=== PATIENT | female | born 1990 | race African-American/Black ===

== ENCOUNTER 2017-10-14 19:07 | Observation (INO) | payer BC, SELFPAY ==
[~2017-10-14 19:07] MED LIST: ISOVUE-370 76%-LOCM 1 ML ONE
[2017-10-14 20:18] LABS: #Lymphocytes 0.8 thou/uL (1.20-3.40); #Monocytes 0.2 thou/uL (0.11-0.59); #Neutrophils 10.4 thou/uL (1.40-6.50); %Basophils 0.2 % (0.0-1.0); %Eosinophils 0.2 % (0.0-10.0); %Lymphocytes 6.9 % (21.0-51.0); %Monocytes 1.4 % (0.0-10.0); %Neutrophils 91.4 % (42.0-75.0); Hemoglobin 12.4 g/dL (12.0-16.0); Mean Corpuscular HGB CONC 32.6 g/dL (32.0-36.0); Mean Corpuscular Hemoglobin 29.3 pg (27.0-31.0); Mean Platelet Volume 6.5 fL (7.4-10.4); Platelet Count 348 thou/uL (130-400); RBC Distribution Width 13.2 % (11.5-14.5); Red Blood Cell (RBC) Count 4.23 mill/uL (4.20-5.40); White Blood Cell (WBC) Count 11.3 thou/uL (4.8-10.8)
[2017-10-14 20:29] LABS: MONO NEGATIVE CONTROL ZONE White (Negative) (White); MONO POSITIVE CONTROL Pink Line (Positive) (PINK/RED); Mononucleosis NEGATIVE (NEGATIVE)
[2017-10-14 20:39] LABS: Anion Gap 13 mmol/L (10-20); BUN (Urea Nitrogen) 7 mg/dL (7.0-18.7); Calc. Creatinine Clearance 0 mL/min (70-130); Carbon Dioxide 24 mmol/L (22-29); Chloride 102 mmol/L (98-107); Estimated GFR-MDRD Greater than 90; Glucose 93 mg/dL (70-105); Potassium 4.4 mmol/L (3.5-5.1); Sodium 135 mmol/L (136-145)
--- NOTE | 2017-10-14 22:59 | CT ---
POSTCONTRAST SOFT TISSUE NECK CT: 10/14/17 HISTORY: Difficulty swallowing. Left jaw pain. Evaluate for peritonsillar abscess. COMPARISON: None. TECHNIQUE: Postcontrast soft tissue neck CT is performed in the axial plane. Reformatted images are submitted fo r interpretation. FINDINGS: There is a mucous retention cyst in the left maxillary sinus. Adequate aeration of the visualized sin uses and mastoid air cells. There is fullness of the nasopharynx as well as the left and right palatine tonsils. There is a perip herally enhancing centrally hypodense lesion involving the left subtonsillar soft tissues/peritonsill ar soft tissues measuring 2.1 x 2.3 cm. Peritonsillar abscess is favored. There is edema in the left parapharyngeal space extending inferiorly. A small amount of edema in the posterior left retropharyng eal space is also noted. There is mild narrowing of the of the airway. Mild lymphoid hyperplasia at t he tongue base. No obvious masses in the anterior oral cavity. Midline fatty raphae of the tongue is preserved. Epiglottis has a normal caliber. Pre-epiglottic fat is preserved. The supraglottic, glottic and subgl ottic larynx is unremarkable. Symmetric attenuation of the psoas muscles. Symmetric attenuation of the parotid and submandibular glands. Sublingual glands are unremarkable. Th ere are scattered mildly enlarged bilateral soft tissue neck lymph nodes. Enlarged help desk representative lef t level II lymph node measures 1.1 x 1.6 cm. Enlarged right level II lymph node measures 1.4 x 0.8 cm . There is no prevertebral soft tissue swelling. Cervical spine vertebral height is maintained. There i s no fracture. Straightening of the normal cervical lordosis is noted. Upper mediastinum and lung api aline are unremarkable. There is periodontal disease involving the posterior left mandible with periapical lucency involving the posterior most mandibular tooth. There is destruction of the medial aspect of the mandible. The a forementioned abscess may have originated from an odontogenic origin. IMPRESSION: 1. Left peritonsillar abscess, etiology is uncertain. There is evidence of periodontal disease i nvolving the posterior most left mandibular molar tooth. This infected fluid collection may have an o dontogenic origin. Clinical correlation is essential. 2. There is edema involving the left parapharyngeal space extending inferior. 3. Large bilateral soft tissue neck lymph nodes which are presumed to be reactive. POS: PPP
[2017-10-14] MEDS ORDERED: HYDROcodone/Acetaminophen 10/325 mg Tablet PO PRN (23:15)
[2017-10-14] MEDS ORDERED: Senokot 8.6 MG TAB PO PRN (23:15)
[2017-10-14] MEDS ORDERED: Ondansetron HCl/PF 4 MG/2 ML Vial IVP PRN (23:15)
[2017-10-14 23:22] VITALS: BMI 20.3
[2017-10-14] MEDS: Sodium Chloride 0.9% 1,000 ML IV SCH (23:30)
[2017-10-14] MEDS: Piperacillin/Tazobactam 4.5 GM in Sodium Chloride 0.9% 100 ML IVPB SCH (23:51)
--- NOTE | 2017-10-15 00:01 | HP ---
DATE OF ADMISSION: 10/14/2017 CHIEF COMPLAINT: Left jaw pain. HISTORY OF PRESENT ILLNESS: This is a 27-year-old -[place] female who presented with a sudde n onset of left jaw pain yesterday, which was progressively getting worse and she is unable to swallo w any fluids nor any of her secretions. When patient presented to the ER, she is unable to open the mouth and there is a high suspicion for peritonsillar abscess, which did prove right and she had a CT of the soft tissue neck, which showed no evidence of left peritonsillar abscess and edema at the pos terior pharyngeal space inferiorly and also showed molar tooth with possible source of the infection of the peritonsillar abscess. ENT was consulted from the ER, who agreed to see the patient and go fr om there. Patient denied having any chest pain, no nausea, no vomiting, no diarrhea, no constipation . She denied having any tooth pains in the past. She denied having any previous hospitalizations. PAST MEDICAL HISTORY: None. PAST SURGICAL HISTORY: Had tubes tied both bilaterally. SOCIAL HISTORY: She is a nonsmoker. Smokes half pack a day. She does drink alcohol occasionally ev ally other week. No history of illicit drug use. FAMILY HISTORY: No significant family history of coronary artery disease or any cancers in the famil y. HOME MEDICATIONS: None. ALLERGIES: No known drug allergies. REVIEW OF SYSTEMS: All 12 systems are reviewed with the patient thoroughly and found to be negative at this time. Systems reviewed, HEENT, CVS, CONCRETE POURER, respiratory, gastrointestinal, genitourinary, muscu loskeletal. The following complete review of systems was negative, unless otherwise mentioned in the HPI or below: Constitutional: Weight loss or gain, sense of well-being, ability to conduct usual a ctivities, exercise tolerance. Skin/Breast: Rash, itching, changes in hair growth or loss, nail changes, breast lumps, tenderness, swelling, nipple discharge. Eyes: Vision, double vision, tearing, blind spots, pain. ENT/Mouth: H eadaches (location, time of onset, duration, precipitating factors), vertigo, lightheadedness, injury . Vision, double vision, tearing, blind spots, pain, nose bleeding, colds, obstruction, discharge, de ntal difficulties, gingival bleeding, dentures, neck stiffness, pain, tenderness, masses in thyroid o r other areas. Cardiovascular: Precordial pain, substernal distress, palpitations, syncope, dyspnea on exertion, orthopnea, nocturnal paroxysmal dyspnea, edema, cyanosis, hypertension, heart murmurs, varicosities, phlebitis, claudication. Respiratory: Pain, shortness of breath, wheezing, stridor, c ough, hemoptysis, fever or night sweats. Gastrointestinal: Poor appetite, dysphagia, indigestion, a bdominal pain, heartburn, eructation, nausea, vomiting, hematemesis, jaundice, constipation, or diarr hea, abnormal stools (antonieta-colored, tarry, bloody, greasy, foul smelling), flatulence, hemorrhoids, r ecent changes in bowel habits. Genitourinary: Urgency, frequency, dysuria, nocturia, hematuria, evelio yuria, oliguria, unusual (or change in) color of urine, stones, hesitancy, change in size of stream, dribbling, acute retention or incontinence, libido, potency. Musculoskeletal: Pain, swelling, redne ss or heat of muscles or joints, limitation, of motion, muscular weakness, atrophy, cramps. Neurolog ic/Psychiatric: Convulsions, paralyzes, tremor, incoordination, paresthesias, difficulties with manuel ry of speech, sensory or motor disturbances, or muscular coordination (ataxia, tremor), emotional pro blems, anxiety, depression, previous psychiatric care, unusual perceptions, hallucinations. Allergy/ Immunologic: Skin rash, anemia, bleeding tendency, polydipsia, polyuria, intolerance to heat or cold . PHYSICAL EXAMINATION: VITAL SIGNS: Blood pressures are 101/60, heart rate is 88, respiration rate is 18, saturation 98%. GENERAL: The patient is moderately built, moderately nourished. She does not appear to be in acute distress at this time. She is alert, oriented x3. HEENT: Atraumatic, normocephalic. PERRLA. Extraocular movements were intact. Oral mucosa is pink and moist. CARDIOVASCULAR: S1, S2 normal. No murmurs, rubs, or gallops. LUNGS: Bilateral air entry was equal. No wheezing, no crackles. ABDOMEN: Soft and nontender. No guarding or rebound tenderness. Bowel sounds normal. MUSCULOSKELETAL: No calf tenderness. No pedal edema. EXTREMITIES: No joint tenderness, no joint swelling. SKIN: No cyanosis, no erythema, no rash, no pallor. NEUROLOGIC: Cranial examination II-XII intact. No focal deficits were noted. PSYCHIATRIC: No signs of suicidal ideation, no signs of chaz. NECK: No thyromegaly. Lymph nodes were noted at the left mandibular area and posterior cervical are a. LABORATORY DATA: 1. Sodium is 135, potassium 4.4, chloride is 102, bicarbonate is 24, BUN 7, creatinine 0.9. 2. WBC 11.3, hemoglobin is 12.4, hematocrit is 38.1, platelets of 348. 3. [place] screen was negative. 4. CT of the soft tissue neck was reviewed by me and also discussed the report with ER physician. P liya did have evidence of left peritonsillar abscess and also left lower molar tooth with signs of infection. ASSESSMENT: 1. Left peritonsillar abscess. 2. Left mandibular molar tooth infection. 3. Moderate dehydration. PLAN: 1. Plan is to consult ENT with ER physician already spoke to and they planned to see the patient in the morning for a possible I&D and removal of the abscess. Plan is to keep the patient n.p.o. at thi s time and start the patient on IV antibiotics with Zosyn 4.4 per grams daily q.6 hours. We will edin sely monitor for any worsening systemic infection. 2. Patient has possible molar tooth infection and may need to have Oral Surgeon to see the patient e ither in the hospital or as urgent referral to outpatient dental surgery. 3. Patient has moderate dehydration, we will start the patient on normal saline at 100 mL an hour. We will closely monitor the patient overnight. 4. Deep venous thrombosis prophylaxis, SCDs as the patient is scheduled for surgery in the morning. I have spent 65 minutes with this patient.
[2017-10-15 05:08] LABS: #Lymphocytes 0.8 thou/uL (1.20-3.40); #Monocytes 0.1 thou/uL (0.11-0.59); #Neutrophils 8.3 thou/uL (1.40-6.50); %Basophils 0.1 % (0.0-1.0); %Lymphocytes 8.6 % (21.0-51.0); %Monocytes 1.5 % (0.0-10.0); %Neutrophils 89.7 % (42.0-75.0); Hemoglobin 11.5 g/dL (12.0-16.0); Mean Corpuscular HGB CONC 32.6 g/dL (32.0-36.0); Mean Corpuscular Hemoglobin 29.4 pg (27.0-31.0); Mean Corpuscular Volume 90.1 fl (81.0-99.0); Mean Platelet Volume 6.5 fL (7.4-10.4); Platelet Count 308 thou/uL (130-400); RBC Distribution Width 13.1 % (11.5-14.5); Red Blood Cell (RBC) Count 3.91 mill/uL (4.20-5.40); White Blood Cell (WBC) Count 9.3 thou/uL (4.8-10.8)
[2017-10-15] MEDS: Piperacillin/Tazobactam 4.5 GM in Sodium Chloride 0.9% 100 ML IVPB SCH ×2 (05:31→12:24)
[2017-10-15 05:34] LABS: Anion Gap 11 mmol/L (10-20); BUN (Urea Nitrogen) 9 mg/dL (7.0-18.7); Calc. Creatinine Clearance 103 mL/min (70-130); Calcium 9.5 mg/dL (7.8-10.44); Carbon Dioxide 23 mmol/L (22-29); Chloride 104 mmol/L (98-107); Estimated GFR-MDRD Greater than 90; Glucose 128 mg/dL (70-105); Potassium 4.3 mmol/L (3.5-5.1); Sodium 134 mmol/L (136-145)
[2017-10-15] MEDS ORDERED: Nicotine 14 MG PATCH TD SCH (09:00)
[2017-10-15] MEDS: Sodium Chloride 0.9% 1,000 ML IV SCH (12:25)
[2017-10-15 12:28] VITALS: BP 101/60; TEMP 97.8
--- NOTE | 2017-10-15 23:29 | DIS ---
DATE OF ADMISSION: 10/14/2017 DATE OF DISCHARGE: 10/15/2017 DISCHARGE DIAGNOSES: 1. Left peritonsillar abscess. 2. Status post incision and drainage of left peritonsillar abscess on 10/15/2017. 3. Tobacco abuse. CONSULTATIONS: Dr. Samm Hancock with ENT Service. PERTINENT LAB AND X-RAY FINDINGS: Basic metabolic profile within normal limits. CBC showed a white blood cell count ranged between 9.3-11.3. [place] screen negative on 10/14/2017. Group A streptococcal screen on 10/14/2017, negative. CT of the soft tissues of the neck dated 10/14/2017 showed left per itonsillar abscess. Evidence of periodontal disease involving the posterior left mandibular molar to oth. Associated lymphadenopathy noted. HOSPITAL COURSE: The patient was observed on the medical floor after initially presenting with left jaw pain and dysphagia with CT imaging of the neck, confirming a left peritonsillar abscess. The pat ient was evaluated by the ENT Service undergoing incision and drainage of the left peritonsillar absc ess on 10/15/2017. The patient was placed on IV Zosyn throughout her hospital course as well as give n intravenous fluids and symptomatic management. The patient will transition to Augmentin 875 mg b.i .d. for 10 days after discharge. Overall, patient remained clinically stable, able to tolerate liqui d intake without complication. Vital signs remained stable and the patient is ambulatory without ass istance or difficulty. I have examined the patient at the time of discharge and discussed discharge planning and follow up instructions, at which point, the patient has verbalized agreement with the pl an. The patient overall clinically stable and ready for discharge on 10/15/2017. DISCHARGE MEDICATIONS: 1. Augmentin 875 mg 1 tab p.o. b.i.d. x10 days. 2. Abilify 5 mg 1 tablet p.o. daily. FOLLOWUP: The patient will follow up with Dr. Matheus Christina with ENT Service on 10/20/2017. CONDITION ON DISCHARGE: Stable. ACTIVITY: Ad alesha. DIET: Regular, mechanical soft. CODE STATUS: FULL. DISPOSITION: Home on 10/15/2017.
--- NOTE | 2017-10-16 07:57 | CON ---
DATE OF CONSULTATION: 10/15/2017 REASON FOR CONSULTATION: The patient was seen in consultation by Joe for evaluation of left perito nsillar abscess. BRIEF HISTORY: This is a 27-year-old female who has had 3-4 days of sore throat, become progressivel y worse on her left side. Now she has difficulty opening her mouth and tolerating secretions. She w as transferred from the evening after receiving Rocephin and Decadron. She reports her symptom s have improved, still with pain in the left side. She reports she had 2-3 other tonsil infections i n the past 2-3 years. PAST MEDICAL HISTORY: Noncontributory. PAST SURGICAL HISTORY: None. ALLERGIES: No known drug allergies. MEDICATIONS: None. SOCIAL HISTORY: Nonsmoker, nondrinker. REVIEW OF SYSTEMS: General: Low-grade fevers in the past 3 days, otherwise, no significant weight l oss or chills. Cardiovascular: No chest pain, palpitations, orthopnea. Pulmonary: No coughing, wh eeze, or bronchitis. Heme: No history of bleeding disorders. PHYSICAL EXAMINATION: GENERAL: The patient is resting comfortably in bed. ORAL CAVITY AND OROPHARYNX: There is some trismus restricting her mouth opening to approximately 2-3 cm. The left tonsil is bulging with redness located in the left peritonsillar space, right tonsils 3+, mildly cryptic. Uvula is midline. Floor of mouth, base of tongue are all soft and healthy. NECK: Subtle lymphadenopathy bilateral level 2. ENT: Ear seems intact. Middle ears well aerated. Nasal cavity slightly congested. PROCEDURE: After risks, benefits, and alternatives were discussed with the patient, incision and je inage of left peritonsillar abscess was performed at the bedside, 1% lidocaine 1:100,000 epinephrine was injected left needle was passed multiple times into the left peritonsillar space, aspirated a total of 5-6 mL of purulence. The patient tolerated the procedure well. ASSESSMENT: 1. Left peritonsillar abscess. 2. Acute tonsillitis. PLAN: She will be discharged on oral Augmentin. Follow up with us in our [facility] on Friday.
== END 2017-10-15 15:25 | disposition home or self-care (01) ==
LOC: ERS 19:07 → T4-B 23:19
PROVIDERS: ADMIT Family Medicine; ATTEND Family Medicine
DX: J36 Peritonsillar abscess (principal); F17.210 Nicotine dependence, cigarettes, uncomplicated; E86.0 Dehydration; K04.7 Periapical abscess without sinus; Z79.899 Other long term (current) drug therapy; Z98.51 Tubal ligation status; Z98.890 Other specified postprocedural states
CPT/HCPCS: 36415; 70491; 80048; 85025; 86308; 87081; 87430; 96361; 96365; G0378; J2543; J7050

== ENCOUNTER 2019-10-13 07:02 | Emergency (ER) | payer SELFPAY, OTHER ==
[2019-10-13 08:01] LABS: #Monocytes 0.3 thou/uL (0.11-0.59); #Neutrophils 10.6 thou/uL (1.40-6.50); %Basophils 0.2 % (0.0-1.0); %Eosinophils 0.1 % (0.0-10.0); %Lymphocytes 8.5 % (21.0-51.0); %Monocytes 2.3 % (0.0-10.0); Hemoglobin 12.9 g/dL (12.0-16.0); Mean Corpuscular Volume 93.9 fL (78.0-98.0); Mean Platelet Volume 6.7 fL (7.4-10.4); Platelet Count 256 thou/uL (130-400); RBC Distribution Width 13.3 % (11.5-14.5); Red Blood Cell (RBC) Count 4.04 mill/uL (4.20-5.40); White Blood Cell (WBC) Count 11.9 thou/uL (4.8-10.8)
[2019-10-13 08:13] LABS: BHCG - Serum Negative (NEGATIVE); Pregs Control Background? CLEAR/WHITE (CLR/WHITE); Pregs Control Bar Appear? YES (CONTROL BAR)
[2019-10-13 08:20] LABS: Acetaminophen Less than 6.0 mcg/mL (10.0-30.0); Alcohol Less than 10 mg/dL (Less than 10); Salicylate Less than 8.0 mg/dL (15.0-30.0)
[2019-10-13 08:29] LABS: ALT (SGPT) 41 U/L (8-55); AST (SGOT) 56 U/L (5-34); Albumin 4.8 g/dL (3.5-5.0); Alkaline Phosphatase 64 U/L (40-110); Anion Gap 15 mmol/L (10-20); BUN (Urea Nitrogen) 6 mg/dL (7.0-18.7); Bilirubin, Total 0.9 mg/dL (0.2-1.2); CK (CPK) 614 U/L (29-168); Calc. Creatinine Clearance 0 mL/min (70-130); Calcium 10.1 mg/dL (7.8-10.44); Carbon Dioxide 23 mmol/L (22-29); Chloride 102 mmol/L (98-107); Estimated GFR-MDRD Greater than 90; Globulin 3.4 g/dL (2.4-3.5); Glucose 87 mg/dL (70-105); Potassium 4.3 mmol/L (3.5-5.1); Protein, Total 8.2 g/dL (6.0-8.3); Sodium 136 mmol/L (136-145)
[2019-10-13 11:02] LABS: Bacteria/HPF None Seen HPF (None Seen); Bilirubin Negative (Negative); Blood, Urine Negative (Negative); Clarity Clear (Clear); Glucose, Urine (Dipstick) Normal (Negative); Leukocyte Negative Leu/uL (Negative); Mucous/LPF 1+ LPF (<2+); Nitrite Negative (Negative); Protein, Urine (Dipstick) 50 mg/dL (Neg-Trace); RBC/HPF 0-3 HPF (0-3); Squamous Epithelial 0-3 HPF (0-3); WBC/HPF 0-3 HPF (0-3)
[2019-10-13 11:12] LABS: Amphetamine Not Detected (NotDetected); Barbiturates Screen Not Detected (NotDetected); Benzodiazepine Screen Detected (NotDetected); Cocaine Metabolite Screen Not Detected (NotDetected); Medtox Control Line Valid? VALID (VALID); Medtox Reader # READER 1; Methadone Not Detected (NotDetected); Methamphetamine Not Detected (NotDetected); Opiate Screen Not Detected (NotDetected); Oxycodone Screen Not Detected (NotDetected); Phencyclidine (PCP) Not Detected (NotDetected); THC/Cannabinoid Screen Detected (NotDetected); Tricyclic Screen Not Detected (NotDetected)
[2019-10-13] MEDS ORDERED: Ziprasidone 20 MG CAP ONE (11:33)
[2019-10-13] MEDS ORDERED: Nicotine 14 MG PATCH ONE (11:33)
[2019-10-13] MEDS ORDERED: OLANZapine 5 MG TAB ONE (11:33)
[2019-10-14] MEDS ORDERED: hydrOXYzine Pamoate 25 mg Capsule PO PRN (07:15)
[2019-10-14] MEDS ORDERED: Ibuprofen 600 MG TAB PO PRN (07:16)
[2019-10-14] MEDS ORDERED: Acetaminophen 325 MG TAB PO PRN (07:17)
[2019-10-14] MEDS ORDERED: traZODone HCl 50 MG TAB PO PRN (07:18)
[2019-10-14] MEDS ORDERED: Nicotine 14 MG PATCH TOP SCH (07:30)
[2019-10-14] MEDS ORDERED: Ziprasidone 20 MG CAP PO SCH (09:00)
[2019-10-14] MEDS ORDERED: Nicotine 21 MG PATCH TOP SCH (09:00)
[2019-10-14] MEDS ORDERED: risperiDONE 1 MG TAB PO SCH (09:00)
[2019-10-14] MEDS ORDERED: OLANZapine 5 MG TAB PO SCH (09:00)
[2019-10-14] MEDS ORDERED: Aripiprazole 10 MG TAB PO SCH (09:00)
== END 2019-10-13 12:20 | disposition home or self-care (01) ==
LOC: ERS 07:02
DX: F23 Brief psychotic disorder (principal); F32.9 Major depressive disorder, single episode, unspecified; F17.210 Nicotine dependence, cigarettes, uncomplicated; Z79.899 Other long term (current) drug therapy
CPT/HCPCS: 36415; 80053; 80306; 80307; 81003; 81015; 82550; 84443; 84703; 85025; 99285